=== PATIENT | female | born 1960 | race Caucasian/White ===

== ENCOUNTER 2023-05-20 19:49 | Emergency (ER) | payer BC ==
[2023-05-20 20:00] VITALS: RESP 18; TEMP 98.4
[2023-05-20] MEDS ORDERED: KETOROLAC 15 MG/ML 1 ML VIAL IVP STA (20:03)
--- NOTE | 2023-05-20 20:35 | ED ---
Upper Extremity HPI - General Chief Complaint: Extremity Injury, Upper Stated Complaint: Left Wrist Injury Time Seen by Provider: 05/20/23 19:52 Source: patient, EMS, RN notes reviewed Mode of arrival: EMS Limitations: no limitations - History of Present Illness Initial Comments: This is a 63-year-old female who presents to the emergency department for a left wrist injury. Patient was trying to get the walker out of her trunk in the [employer] parking lot this evening, when she lost balance and fell, catching herself with her left hand. She now has a lot of pain to the left wrist. She is still able to move her fingers. Denies hitting her head or sustaining any other injuries. Not taking any blood thinners. States that she has MS and loses her balance easily. She was given Fentanyl by EMS on route, which was helpful. Denies any fevers, chills, sore throat, cough, dyspnea, chest pain, palpitations, abdominal pain, nausea, vomiting, diarrhea, back pain, or headaches. MD Complaint: Injury to:: left, arm, wrist - Related Data Home Medications Medication Instructions Recorded Confirmed Cyanocobalamin [Vitamin B-12] 1,000 mcg PO DIRECTED 04/11/14 04/11/14 Folic Acid 1 mg PO DAILY 04/11/14 04/11/14 Gabapentin 600 mg PO TID 04/11/14 04/11/14 Meloxicam [Mobic] 7.5 mg PO DAILY PRN 04/11/14 04/11/14 Previous Rx's Medication Instructions Recorded Cephalexin [Keflex] 500 mg PO Q6HR 7 Days #28 cap 05/20/23 HYDROcodone/APAP 7.5-325MG [Meacham 1 tab PO Q6HR PRN 3 Days #12 tab 05/20/23 7.5-325] Allergies Allergy/AdvReac Type Severity Reaction Status Date / Time Sulfa (Sulfonamide AdvReac Rash/Hives Verified 04/11/14 12:30 Antibiotics) Review of Systems ROS Statement: Those systems with pertinent positive or pertinent negative responses have been documented in the HPI. ROS Other: All systems not noted in ROS Statement are negative. Past Medical History Additional Past Medical History / Comment(s): leg weakness - having LP on 04-11-14 History of Any Multi-Drug Resistant Organisms: None Reported Past Surgical History: Bariatric Surgery Additional Past Surgical History / Comment(s): 1995-bariatric surgery. cervical epidural steroid injections Past Psychological History: No Psychological Hx Reported Smoking Status: Never smoker Past Alcohol Use History: Occasional Past Drug Use History: None Reported - Past Family History Sister(s) Additional Family Medical History / Comment(s): Multiple Sclerosis General Exam Limitations: no limitations General appearance: alert, in no apparent distress Head exam: Present: atraumatic, normocephalic, normal inspection Respiratory exam: Present: normal lung sounds bilaterally. Absent: respiratory distress, wheezes, rales, rhonchi, stridor Cardiovascular Exam: Present: regular rate, normal rhythm, normal heart sounds. Absent: systolic murmur, diastolic murmur, rubs, gallop, clicks Extremities exam: Present: other (Dorsal angulation of the left wrist with ecchymosis and swelling. Full range of motion of all 5 digits. 2+ radial pulses and capillary refill less than 1 second. The volar aspect of the wrist has a 1 cm wound with mild active bleeding.) Neurological exam: Present: alert, oriented X3, CN II-XII intact Psychiatric exam: Present: normal affect, normal mood Skin exam: Present: warm, dry, normal color. Absent: rash Course Vital Signs 05/20/23 05/21/23 19:53 01:08 Temperature 98.4 F 98.4 F Pulse Rate 67 65 Respiratory 18 18 Rate Blood Pressure 142/82 145/87 O2 Sat by Pulse 97 95 Oximetry Procedures - Laceration Laceration #1 Consent Obtained: verbal consent Indication: laceration Site: upper extremity Size (cm): 1 Description: linear Depth: simple, single layer Anesthetic Used: lidocaine 2% Anesthesia Technique: local infiltration Amount (mls): 1 Pre-repair: wound explored, irrigated extensively Type of Sutures: nylon Size of Sutures: 5-0 Number of Sutures: 2 Technique: other (figure 8) - Orthopedic Fracture Reduction Fracture #1 Consent Obtained: verbal consent Side: left Fracture Reduction Location: radius, ulna Analgesia: hematoma block Technique: direct manipulation Post Reduction X-rays Demonstrate: acceptable reduction Post-Reduction Neuro Exam: intact Post-Reduction Vascular Exam: intact Splint Applied: Yes Patient Tolerated Procedure: well - Orthopedic Splinting/Casting Injury #1 Side: left Upper Extremity Injury Location: wrist Upper Extremity Immobilizer: sugar tong splint Medical Decision Making - Medical Decision Making This is a 63-year-old female who presents to the emergency department for left wrist pain after a fall. Was pt. sent in by a medical professional or institution? @ -No Did you speak to anyone other than the patient for history? @ -No Did you review nursing and triage notes? @ -Yes, and I agree, it is accurate with regards to the patient's symptoms. Were old charts reviewed? @ -No Differential Diagnosis? @ -Differential Wrist Pain: Fracture, dislocation, contusion, sprain, this is not meant to be an all- inclusive list. EKG interpreted by me (3pts min.)? @ -Not obtained X-rays interpreted by me (1pt min.)? @ -X-ray of the left wrist obtained. My interpretation identifies a displaced radius and ulnar fracture. CT interpreted by me (1pt min.)? @ -Not obtained U/S interpreted by me (1pt. min.)? @ -Not obtained What testing was considered but not performed? (CT, X-rays, U/S, labs)? Why? @ -None What meds were considered but not given? Why? @ -None Did you discuss the management of the patient with other professionals? @ -No Did you reconcile home meds? @ -No Was smoking cessation discussed for >3mins.? @ -No Was critical care preformed (if so, how long)? @ -No Were there social determinants of health that impacted care today? How? (Homelessness, low income, unemployed, alcoholism, drug addiction, transportation, low edu. Level, literacy, decrease access to med. care, long-term, rehab)? @ -No Was there de-escalation of care discussed even if they declined? (Discuss DNR or withdrawal of care, Hospice)? @ -No What co-morbidities impacted this encounter? (DM, HTN, Smoking, COPD, CAD, Cancer, CVA, Hep., AIDS, mental health diagnosis, sleep apnea, morbid obesity)? @ -MS Was patient admitted / discharged? @ -Discharged. X-ray of the left wrist revealed displaced, comminuted, and angulated fractures of the distal radius and ulna. This was discussed with the patient. Hematoma block with 2% lidocaine mixed with bupivacaine was performed. Reduction of the fracture by direct manipulation performed by Dr. Arias. Patient tolerated the procedure well and was placed in a sugar tong splint. Postreduction x-rays reveal acceptable reduction. She was neurovascularly intact before and after the procedure. Additionally, the laceration to the back of the wrist began to bleed again, and 2 [id number] sutures were placed and hemostasis was achieved. It is unclear if this was caused by a piece of gravel from the fall or if it was from the patient's fitbit watch, as she suggested. It may have also been caused by part of the fracture puncturing the skin. Due to the possibility of it being caused by the fracture, she was given a dose of cefazolin. Additionally, tetanus vaccine was updated. Discussed that the sutures will need to be removed in 7-10 days. However, this will be evaluated by orthopedics prior and they can make a more definitive decision on the sutures. Information for orthopedic follow-up provided. She is instructed to contact them first thing in the morning for a follow-up appointment. Prescription for Meacham and Keflex provided with dosing instructions reviewed. Advised she alternate with ibuprofen and Tylenol for pain relief and take the Meacham sparingly when her pain is the most severe. Advised that the Meacham is sedating and she should avoid driving or operating machinery when taking this. Also advised to apply ice for 15-20 minutes every 2-3 hours. Signs and symptoms of compartment syndrome reviewed, which would necessitate the need for the patient to return to the emergency department. She expressed understanding. Undiagnosed new problem with uncertain prognosis? @ -None Drug Therapy requiring intensive monitoring for toxicity (Heparin, Nitro, Insulin, Cardizem)? @ -None Were any procedures done? @ -Fracture reduction, sugar tong splint application, and laceration repair with sutures. Diagnosis/symptom? @ -Distal radius and ulnar fracture Acute, or Chronic, or Acute on Chronic? @ -Acute Uncomplicated (without systemic symptoms) or Complicated (systemic symptoms)? @ -Uncomplicated Side effects of treatment? @ -None Exacerbation, Progression, or Severe Exacerbation] @ -Not applicable Poses a threat to life or bodily function? @ -This will impact her ability to use her left arm for the mean time. Return precautions reviewed in depth, the patient is instructed to return to the emergency department with any new, worsening, or concerning symptoms. Patient verbalized understanding. This case was discussed in detail with the attending ED physician, Dr. Arias. Presentation, findings, and treatment plan discussed in detail as well. - Radiology Data Radiology results: report reviewed, image reviewed Disposition Clinical Impression: Radius and ulna distal fracture, Fall Disposition: HOME SELF-CARE Instructions (If sedation given, give patient instructions): Wrist Fracture in Adults (ED), Splint Care (ED) Additional Instructions: Return to the emergency department with any new, worsening, or concerning symptoms. Alternate with ibuprofen and Tylenol as needed for pain relief. Take the Meacham sparingly when your pain is the most severe and be aware that it may make you drowsy and you should avoid driving or operating machinery when taking this. Apply ice for 15-20 minutes every 2-3 hours. Contact orthopedics as listed below first thing in the morning, let them know that you were seen in the emergency department for a radius and ulnar fracture that required reduction, and they will get you in for a follow-up appointment as soon as possible. Follow up with your primary care provider in 1-2 days. Prescriptions: Cephalexin [Keflex] 500 mg PO Q6HR 7 Days #28 cap HYDROcodone/APAP 7.5-325MG [Meacham 7.5-325] 1 tab PO Q6HR PRN 3 Days #12 tab PRN Reason: Pain Is patient prescribed a controlled substance at d/c from ED?: Yes When asked, does pt state using other controlled substances?: No If prescribed controlled substance>3 days was MAPS reviewed?: Prescribed <3 Days Referrals: Marino English MD [Primary Care Provider] - 1-2 days Ean Saenz DO [Doctor of Osteopathic Medicine] - 1-2 days
[2023-05-20] MEDS ORDERED: MORPHINE SULFATE 4 MG/ML SYRINGE IVP STA (21:13)
--- NOTE | 2023-05-20 21:25 | XR ---
PROCEDURE: XR wrist complete LT - 3V DATE AND TIME: 05/20/2023 8:35 PM CLINICAL INDICATION: Pain after fall TECHNIQUE: Department protocol COMPARISON: None FINDINGS: [place] volar displaced, comminuted, and angulated fractures of the distal radius and ulna, with one sha ft width override. There appears to be involvement of the DRUJ and radiocarpal joints. IMPRESSION: Distal left radius/ulna complex fractures.
--- NOTE | 2023-05-20 21:26 | XR ---
PROCEDURE: XR forearm LT - 2V DATE AND TIME: 05/20/2023 8:35 PM CLINICAL INDICATION: Pain after fall TECHNIQUE: Department protocol COMPARISON: None FINDINGS: AP and lateral views were obtained from the elbow to wrist. [place] volar displaced, comminuted, and angulated fractures of the distal radius and ulna, with one sha ft width override. There appears to be involvement of the DRUJ and radiocarpal joints. No other fractures. IMPRESSION: Distal left radius/ulna complex fractures.
[2023-05-20] MEDS ORDERED: LIDOCAINE 1% INJ 10MG/ML (5 ML VIAL-PF) SQ STA (21:35)
[2023-05-20] MEDS ORDERED: BUPIVACAINE (PF) 0.5% 30 ML VIAL SQ STA (21:35)
[2023-05-20] MEDS ORDERED: HYDROmorphone 0.5 MG/0.5 ML SYRINGE IVP STA (23:15)
[2023-05-20] MEDS ORDERED: LIDOCAINE/EPINEPHR/TETRACAINE 5 ML BOTTLE TOPICAL ONE (23:26)
[2023-05-21] MEDS ORDERED: DIPH,PERTUS(ACELL)TETVAC-LF 0.5 ML VIAL IM ONE (00:14)
--- NOTE | 2023-05-21 00:28 | XR ---
EXAM: XR Left Wrist Complete, 3 or More Views CLINICAL HISTORY: ITS.REASON XR Reason: Post reduction TECHNIQUE: Frontal, lateral and oblique views of the left wrist. COMPARISON: No relevant prior studies available. FINDINGS: Bones/joints: Dorsally angulated fracture of the LEFT distal radius distal metaphysis. Dorsally angulated fracture of the LEFT distal ulna distal metaphysis. No dislocation. Soft tissues: Diffuse soft tissue swelling. IMPRESSION: 1. Dorsally angulated fracture of the LEFT distal radius distal metaphysis. 2. Dorsally angulated fracture of the LEFT distal ulna distal metaphysis.
[2023-05-21] MEDS ORDERED: HYDROcodone/APAP 10-325MG 1 EACH TAB PO ONE (00:41)
[2023-05-21] MEDS ORDERED: ACET/COD 300 MG/30 MG STARTER PACK 6 TAB BTL PO STA (00:41)
[2023-05-21] MEDS ORDERED: IBUPROFEN 600 MG STARTER PACK 4 TAB BTL PO STA (00:41)
[2023-05-21] MEDS ORDERED: KETOROLAC 15 MG/ML 1 ML VIAL IVP STA (00:41)
[2023-05-21 01:14] VITALS: BP 145/87; PULSE 65
== END 2023-05-21 01:14 | disposition home or self-care (01) ==
LOC: EC 19:49
DX: S52.592A Other fractures of lower end of left radius, initial encounter for closed fracture (principal); S52.692A Other fracture of lower end of left ulna, initial encounter for closed fracture; Z23 Encounter for immunization; Z88.2 Allergy status to sulfonamides; W01.0XXA Fall on same level from slipping, tripping and stumbling without subsequent striking against object, initial encounter; Y92.481 Parking lot as the place of occurrence of the external cause
CPT/HCPCS: 73090; 73100; 73110; 90715; 99284; 25605; 12001; 96365; 96375 ×3; 96376; 90471; J2270; J0690; J2001; J1885 ×2; J1170; J0665

== ENCOUNTER → 2023-05-24 | Outpatient (CLI) | payer BC ==
[2023-05-25 02:01] LABS: Basophils # (A) 0.04 X 10*3/uL (0.00-0.10); Basophils % (A) 0.6 %; Eosinophils # (A) 0.11 X 10*3/uL (0.04-0.35); Eosinophils % (A) 1.8 %; HCT 38.1 % (37.2-46.3); HGB 12.4 d/dL (12.0-15.0); Lymphocytes # (A) 0.76 X 10*3/uL (0.90-5.00); Lymphocytes % (A) 12.2 %; MCH 30.6 pg (27.0-32.0); MCHC 32.5 d/dL (32.0-37.0); MCV 94.1 FL (80.0-97.0); Mean Platelet Volume 10.4 FL (9.5-12.2); Monocytes % (A) 9.6 %; NRBC Per 100 WBC 0 X 10*3/uL (0.00-0.01); Neutrophils # (A) 4.73 X 10*3/uL (1.80-7.70); Neutrophils % (A) 75.6 %; Platelet Count 274 X 10*3/uL (140-440); RBC 4.05 X 10*6/uL (4.10-5.20); RDW 12.8 % (11.5-14.5); WBC 6.25 X 10*3/uL (4.50-10.00)
[2023-05-25 02:17] LABS: Blood Urea Nitrogen 11.6 mg/dL (9.0-27.0); Calcium 10.1 mg/dL (8.7-10.3); Carbon Dioxide 27.2 mmol/L (21.6-31.8); Chloride 104 mmol/L (96-109); Glucose 85 mg/dL (70-110); Potassium 4.4 mmol/L (3.5-5.5); Sodium 142 mmol/L (135-145)
== END | disposition home or self-care (01) ==
LOC: LABPAT 15:26
PROVIDERS: ATTEND Orthopaedic Surgery Hand Surgery
DX: Z01.818 Encounter for other preprocedural examination (principal); S52.572A Other intraarticular fracture of lower end of left radius, initial encounter for closed fracture; X58.XXXA Exposure to other specified factors, initial encounter
CPT/HCPCS: 80048; 85025; 93005

== ENCOUNTER 2023-05-26 12:10 | Day surgery (SDC) | payer BC ==
[2023-05-25 10:06] VITALS: BMI 27.3
--- NOTE | 2023-05-25 10:32 | P.HPOR ---
History of Present Illness H&P Date: 05/25/23 Subjective: This is a 63 year old female that presents today for initial evaluation regarding a left wrist injury that occurred on 05/20/2023 when she fell onto an outstretched hand while trying to get her walker out of the trunk and went to break her fall and medially had pain, deformity and swelling.She has a history of MS. She was seen in the emergency department where a closed reduction and immobilization was performed. She's been in her splint since the reduction in the emergency department. She denies any prior injury to this wrist in the past. She denies any paresthesias. Denies any other areas of pain. Physical Examination: LUE: AIN/PIN/Radial/Ulnar/Median motor intact. Radial/Ulnar/Median SILT. 2+/4 Radial/Ulnar pulses palpated. 5/5 APB, 5/5 FDI. Negative Finkelsteins, negative CMC grind, negative Durkan's compression. Bruising/swelling present over distal radius. TTP over distal radius. Remainder of exam limited due to pain. Imaging: X-Rays of the left wrist 3 view taken in the office today demonstrate a dorsally displaced and angulated distal radius fracture. Minimally displaced distal ulna fracture. Impression: 1.)Left wrist intra-articular distal radius fracture, 3 parts. 2.) Minimally displaced left distal ulna fracture. Plan: Diagnosis and treatment options were discussed with the patient. Due to the amount of displacement on imaging today I recommend surgical intervention in the form of a left distal radius open reduction internal fixation. Risks and benefits of surgery including bleeding, infection, damage to surrounding tissue, need for further surgery, residual numbness were discussed and the patient wished to go forward with surgery. The patient was agreeable with this plan. Pre op labs/EKG are ordered and new short arm splint is applied. CC: Marino English MD -Ean Saenz DO Orthopedic Hand/Upper Extremity Surgeon Past Medical History Additional Past Medical History / Comment(s): Multiple Sclerosis. anemia History of Any Multi-Drug Resistant Organisms: None Reported Past Surgical History: Bariatric Surgery Additional Past Surgical History / Comment(s): pituitary gland tumor removed. Past Anesthesia/Blood Transfusion Reactions: No Reported Reaction Past Psychological History: No Psychological Hx Reported Smoking Status: Never smoker Past Alcohol Use History: Occasional Past Drug Use History: None Reported - Past Family History Sister(s) Additional Family Medical History / Comment(s): Multiple Sclerosis Medications and Allergies Home Medications Medication Instructions Recorded Confirmed Type Cyanocobalamin [Vitamin B-12 1,000 mcg SQ QMONTHLY 05/25/23 05/25/23 History Injection] Folic Acid 1 mg PO DAILY 05/25/23 05/25/23 History Ibuprofen [Motrin] 800 mg PO Q8H PRN 05/25/23 05/25/23 History Nf-Aminopyridine 10 mg PO BID 05/25/23 05/25/23 History Oxybutynin Chloride [oxyBUTYnin 10 mg PO DAILY 05/25/23 05/25/23 History chloride ER] Allergies Allergy/AdvReac Type Severity Reaction Status Date / Time Sulfa (Sulfonamide AdvReac Rash/Hives Verified 05/25/23 09:49 Antibiotics) Physical Examination Osteopathic Statement: *. No significant issues noted on an osteopathic structural exam other than those noted in the History and Physical/Consult.
[2023-05-26] MEDS ORDERED: ONDANSETRON 4 MG/2 ML VIAL ONE (12:25)
[2023-05-26] MEDS ORDERED: LACTATED RINGERS 1,000 ML IV ONE (12:30)
[2023-05-26] MEDS ORDERED: ONDANSETRON 4 MG/2 ML VIAL IVP ONE (12:58)
[2023-05-26] MEDS ORDERED: DEXAMETHASONE SOD PHOSPHATE 4 MG/ML 1 ML VIAL IVP ONE (12:58)
[2023-05-26] MEDS ORDERED: MIDAZOLAM 2 MG/2 ML VIAL IVP ONE (13:07)
[2023-05-26] MEDS ORDERED: LIDOCAINE 2% INJ 20 MG/ML (2 ML VIAL) ONE (13:36)
[2023-05-26] MEDS ORDERED: ROPIVACAINE 5 MG/ML 30 ML VIAL ONE (13:36)
[2023-05-26] MEDS ORDERED: KETOROLAC 15 MG/ML 1 ML VIAL ONE (13:36)
[2023-05-26] MEDS ORDERED: fentaNYL (PF) 50 MCG/ML 2 ML AMP ONE (13:36)
[2023-05-26] MEDS ORDERED: PROPOFOL 10 MG/ML 20 ML VIAL IV ONE (13:36)
[2023-05-26] MEDS ORDERED: ePHEDrine 50 MG/ML 1 ML VIAL ONE (13:36)
--- NOTE | 2023-05-26 14:50 | P.ANPRN ---
Procedure Note - Anesthesia - Nerve Block Performed Time Out Performed: Yes (13:) Date of Procedure: 05/26/23 Procedure Start Time: Procedure Stop Time: Location of Patient: PreOp Indication: Acute Post-Operative Pain, Requested by Surgeon (DR Saenz) Sedation Type: Sedate with meaningful contact maintained Preparation: Sterile Prep Position: Supine Catheter: None Needle Types: Pajunk Needle Gauge: Other (see comment) (22g) Ultrasound used to visualize needle placement: Yes Ultrasound used to observe medication spread: Yes Injectate: 0.5% Ropivacaine (see comment for volume) (20cc) Blood Aspirated: No Pain Paresthesia on Injection Noted: No Resistance on Injection: Normal Image Stored and Saved: Yes Events: Uneventful and Well Tolerated
[2023-05-26 15:03] VITALS: TEMP 97.2
[2023-05-26 15:15] VITALS: RESP 16
[2023-05-26 16:08] VITALS: BP 145/84; PULSE 98
--- NOTE | 2023-05-26 16:34 | P.OP ---
Date of Procedure: 05/26/23 Preoperative Diagnosis: 1.) Left intra-articular distal radius fracture 2.) Left distal ulna fracture Postoperative Diagnosis: 1.) Left intra-articular distal radius fracture 2.) Left distal ulna fracture Procedure(s) Performed: 1.) Open reduction internal fixation of left intra-articular distal radius fracture 2.) Closed reduction of left distal ulna fracture Implants: Arthrex 3 hole volar locking plate Anesthesia: DAR, regional Surgeon: Ean Saenz Estimated Blood Loss (ml): 0 Pathology: none sent Condition: stable Disposition: PACU Description of Procedure: This is a 63 year old female who sustained a displaced intra-articular distal radius and ulna fracture and presents today for open reduction internal fixation of their left distal radius fracture/ulna fracture. Risks and benefits of surgery were discussed with the patient including bleeding, damage to surrounding tissue, infection, need for further surgery as well as risks of anesthesia including pulmonary embolism and even and the patient wished to proceed with surgical intervention. The patients was seen in the pre-operative area by myself. Consent and H&P were completed and updated. The correct extremity was marked in the pre-operative area by myself and all other questions were answered. Operative Narrative: The patient was brought to the operating room by the department of anesthesia. They remained on the portable stretcher and a rolling hand table was brought to the side of the operative extremity. Pre-operative time out was performed indicating the correct patient, procedure and laterality. All in the room agreed. Pre-operative antibiotics were given prior to skin incision. The patient was then drifted off to sleep by the department of anesthesia. A nonsterile tourniquet was then applied to the operative extremity and the left upper extremity was then prepped and draped in normal sterile fashion. The operative extremity was the exsanguinated with an esmarch bandage and the tourniquet was inflated to 250mmHg. A longitudinal incision centered over the FCR tendon was made with a 15-blade scalpel. Blunt dissection was taken down to the FCR tendon sheath using Bovie cautery for meticulous hemostasis. The FCR sheath was opened with tenotomy scissors. The floor of the FCR sheath was then incised with a 15-blade scalpel and the FPL tendon and muscle belly was swept bluntly in an ulnar direction to reveal the pronator quadratus. Pronator quadratus was sharply incised with a 15-blade scalpel along the radial border of the distal radius, coming across transversely parallel to the joint at the level of the watershed line, radial artery was identified and protected. Periosteal elevator was then used to elevate the pronator quadratus off the distal radius from a radial to ulnar fashion. A [place] elevator was used to lever the distal piece back into place and free up the fractured fragments. A narrow width 3 hole Arthrex titanium volar locking distal radius plate was chosen to fit the patients anatomy best. This was placed on the distal radius under direct visualization and the oblong hole was drilled and filled with a non-locking screw. The distal radius fracture was then reduced to the plate distally and a k-wire was placed in the ulnar most k-wire hole in the proximal row. Fluoroscopy was then utilized to confirm correct placement of plate in the radial/ulnar plane and distal k-wire placement was confirmed to be proximal to the subchondral bone on 20 degree elevated lateral view confirming extra-articular screw placement. Hoahaoism of radial height, inclination and volar tilt was achieved. The distal ulna fracture was also reduced to acceptable alignment with reduction of the radius. The distal rows and radial styloid screw holes were then drilled and filled from ulnar to radial with locking screws. Attention was then brought to the proximal shaft screws. Proximal nonlocking and locking shaft screws were drilled, measured, and filled. The wrist joint was the ranged and full smooth flexion/extension with no crepitus appreciated. Final imaging was taken confirming extra-articular placement of distal screws at DRUJ and radiocarpal joint. The wound was then irrigated. Subcutaneous closure was performed with 4-0 monocryl followed by skin closure with 4-0 nylon suture. Sterile dressing consisting of adaptic, 4x4s, and a volar plaster splint was applied. Tourniquet was let down and the hand had immediate perfusion. The patient was then woken by the department of anesthesia and transferred to PACU in stable condition. Ean Saenz D.O. Orthopedic Hand/Upper Extremity Surgeon
== END 2023-05-26 16:17 | disposition home or self-care (01) ==
LOC: OR 12:10
PROVIDERS: ATTEND Orthopaedic Surgery Hand Surgery
DX: S52.572A Other intraarticular fracture of lower end of left radius, initial encounter for closed fracture (principal); S52.692A Other fracture of lower end of left ulna, initial encounter for closed fracture; G89.18 Other acute postprocedural pain; W19.XXXA Unspecified fall, initial encounter; Z88.2 Allergy status to sulfonamides; Z79.899 Other long term (current) drug therapy
CPT/HCPCS: 64415; 25608; C1713 ×3; J2250; J1100; J0690; J2405; J3010; J2795; J1885; J2704; J2001